=== PATIENT | female | born 1990 | race Caucasian/White ===

== ENCOUNTER 2021-02-13 11:16 | Outpatient (CLI) | payer BC ==
[2021-02-13] MEDS ORDERED: IBUP-1223 PO (11:42)
[2021-02-13 12:11] LABS: MICROSCOPIC AUTO
== END 2021-02-13 23:59 | disposition home or self-care (01) ==
LOC: STAR 11:16
PROVIDERS: ATTEND Colon & Rectal Surgery
DX: Z01.812 Encounter for preprocedural laboratory examination (principal); Z20.822 Contact with and (suspected) exposure to COVID-19; K80.20 Calculus of gallbladder without cholecystitis without obstruction
CPT/HCPCS: 81001; U0003; U0005

== ENCOUNTER 2021-02-19 06:32 | Day surgery (SDC) | payer BC, MEDICAID ==
[~2021-02-19] VITALS: Ht 167.6 cm; Wt 132.6 kg
[~2021-02-19 06:32] MED LIST: IBUP-1223 PO
[2021-02-19 06:49] VITALS: BP 119/86
[2021-02-19] MEDS ORDERED: CHLORHEXIDINE 15 ML UDC PO ONE (07:00)
[2021-02-19] MEDS ORDERED: LACTATED RINGERS 1,000 ML IV SCH (07:00)
[2021-02-19 07:46] LABS: HCG UR SG 1.025 (1.003-1.030)
[2021-02-19] MEDS ORDERED: MIDAZOLAM 1 MG/ML, 2ML ONE (08:11)
[2021-02-19] MEDS ORDERED: FENTANYL PF 100 MCG/2ML ONE ×3 (08:11→10:10)
[2021-02-19] MEDS ORDERED: LABETALOL 5MG/ML, 20ML IV PRN (08:30)
[2021-02-19] MEDS ORDERED: DIPHENHYDRAMINE 50 MG/ML, 1ML IVPush PRN (08:30)
[2021-02-19] MEDS ORDERED: MEPERIDINE/PF 25MG/0.5ML IVPush PRN (08:30)
[2021-02-19] MEDS ORDERED: OXYcodone 5 MG/5 ML ORAL.SOL UDC PO PRN (08:30)
[2021-02-19] MEDS ORDERED: PROMETHAZINE 25 MG/ML, 1ML IVPush PRN (08:30)
[2021-02-19] MEDS ORDERED: HYDROmorphone 1 MG/ML, 1ML INJ IVPush PRN (08:30)
[2021-02-19] MEDS ORDERED: HALOPERIDOL 5 MG/ML IV PRN (08:30)
[2021-02-19] MEDS ORDERED: ACETAMINOPHEN 325 MG TABLET PO PRN (08:30)
[2021-02-19] MEDS ORDERED: hydrALAzine 20 MG/ML, 1ML IV PRN (08:30)
[2021-02-19] MEDS ORDERED: BUPIVACAINE/PF 0.5% ONE (09:01)
[2021-02-19] MEDS ORDERED: CEFOTETAN 2 GM ONE (09:24)
[2021-02-19] MEDS ORDERED: EPINEPHRINE 1 MG/ML, 1ML INFIL ONE (09:32)
[2021-02-19] MEDS ORDERED: GLYCOPYRROLATE 0.2MG/1ML, 5ML ONE (09:42)
[2021-02-19] MEDS ORDERED: CEFAZOLIN 1,000 MG ONE (09:42)
[2021-02-19] MEDS ORDERED: DEXAMETHASONE 4 MG/ML, 1ML ONE (09:42)
[2021-02-19] MEDS ORDERED: KETOROLAC 30 MG/1 ML ONE ×2 (09:42)
[2021-02-19] MEDS ORDERED: ROCURONIUM 10MG/ML,5ML ONE (09:42)
[2021-02-19] MEDS ORDERED: ONDANSETRON 2MG/ML, 2ML ONE (09:42)
[2021-02-19] MEDS ORDERED: PROPOFOL 10 MG/ML, 20ML ONE (09:42)
[2021-02-19] MEDS ORDERED: NEOSTIGMINE 1 MG/ML, 10ML ONE (09:42)
[2021-02-19] MEDS ORDERED: SUCCINYLCHOLINE 20 MG/ML, 10ML ONE (09:42)
[2021-02-19] MEDS ORDERED: OXYC-302 PO (10:01)
[2021-02-19] MEDS: FENTANYL PF 100 MCG/2ML IV PRN ×3 (10:13→10:48)
[2021-02-19] MEDS ORDERED: ACETAMINOPHEN 650 MG/20.3 ML UDC ONE (10:23)
[2021-02-19] MEDS ORDERED: OXYcodone 5 MG/5 ML ORAL.SOL UDC ONE (10:23)
== END 2021-02-19 12:35 | disposition home or self-care (01) ==
LOC: OUT 06:32
PROVIDERS: ATTEND Colon & Rectal Surgery
DX: K80.10 Calculus of gallbladder with chronic cholecystitis without obstruction (principal); E66.01 Morbid (severe) obesity due to excess calories
CPT/HCPCS: 47562; 81025; 88304; C1729; J0171; J0330; J0690; J1100; J1885; J2250; J2405; J2704; J2710; J3010; J7120